=== PATIENT | male | born 1955 | race Caucasian/White ===

== ENCOUNTER 2019-11-14 08:56 | Observation (INO) ==
[~2019-11-14 08:56] MED LIST: Buffered Lidocaine 1% SYRIN 1 ml INTRADERM ONE; Famotidine IV 10 MG/ML 2 ml VIAL (20 mg) IV ONE; Lactated Ringers 1000 ml BAG 1,000 ML IV SCH
[2019-11-14] MEDS ORDERED: Famotidine IV 10 MG/ML 2 ml VIAL (20 mg) ONE (09:22)
[2019-11-14] MEDS ORDERED: ceFAZolin 2 GM PREMIX 2 GM/50 ML BAG ONE (09:22)
[2019-11-14] MEDS ORDERED: Midazolam 2 mg/2 ml VIAL 1 mg/ml 2 ml VIAL (2 mg) ONE (10:45)
[2019-11-14] MEDS ORDERED: fentaNYL 100 mcg/2 ml 50 MCG/ML VIAL ONE ×4 (10:45→15:10)
[2019-11-14] MEDS ORDERED: Succinylcholine 200 mg VIAL 20 mg/ml 10 ml VIAL (200 mg) ONE (11:16)
[2019-11-14] MEDS ORDERED: Acetaminophen IV 1 GM/100ML 100 ML ONE (11:16)
[2019-11-14] MEDS ORDERED: Propofol 10 MG/ML 20 ML BTL ONE (11:16)
[2019-11-14] MEDS ORDERED: Ondansetron 4 mg VIAL 2 MG/ML 2 ml VIAL ONE (11:16)
[2019-11-14] MEDS ORDERED: Lidocaine 2% PF 5 ML VIAL ONE (11:16)
[2019-11-14] MEDS ORDERED: Dexamethasone IV 4 MG/ML VIAL 1 ml VIAL ONE (11:16)
[2019-11-14] MEDS ORDERED: ROPIVACAINE 5 MG/ML 30 ML BTL (0.5%) ONE (11:19)
[2019-11-14] MEDS ORDERED: HYDROmorphone 1 MG/1 ML SYRINGE ONE (12:24)
[2019-11-14] MEDS ORDERED: Lactulose 30 ml UDC PO PRN (14:50)
[2019-11-14] MEDS ORDERED: diPHENhydraMINE IV 50 MG/ML 1 ml VIAL (BENADRYL) IV PRN (14:50)
[2019-11-14] MEDS ORDERED: Morphine 2 MG/ML SYRINGE IV PRN (14:50)
[2019-11-14] MEDS ORDERED: Ondansetron ODT 4 mg TAB 4 MG TAB PO PRN (14:50)
[2019-11-14] MEDS ORDERED: Magnesium Hydroxide LIQ 30 ML UDC PO PRN (14:50)
[2019-11-14] MEDS ORDERED: diPHENhydraMINE 25 mg TAB PO PRN (14:50)
[2019-11-14] MEDS ORDERED: Naloxone 0.4 mg VIAL 0.4 mg/ml 1 ml VIAL IV PRN (14:55)
[2019-11-14] MEDS ORDERED: Levalbuterol 0.63MG/3ML NEB UNIT OF USE INH PRN (14:55)
[2019-11-14] MEDS ORDERED: fentaNYL 100 mcg/2 ml 50 MCG/ML VIAL IV PRN (14:55)
[2019-11-14] MEDS ORDERED: DiMENhydriNATE IV 50 mg/ml 1 ml VIAL IV PUSH PRN (14:55)
[2019-11-14] MEDS ORDERED: Ondansetron 4 mg VIAL 2 MG/ML 2 ml VIAL IV PRN (14:55)
[2019-11-14] MEDS: Lactated Ringers 1000 ml BAG 1,000 ML IV SCH (16:23)
[2019-11-14] MEDS: Ondansetron 4 mg VIAL 2 MG/ML 2 ml VIAL IV PRN (17:23)
[2019-11-14] MEDS ORDERED: Thiamine 100 MG/ML 2 ml VIAL (200 mg) IM ONE (19:28)
[2019-11-14] MEDS: ceFAZolin 1 GM ADVAN 1 GM in NS 0.9% 50 ML 50 ML IVPB SCH (20:08)
[2019-11-14] MEDS: Magnesium Hydroxide LIQ 30 ML UDC PO SCH (22:25)
[2019-11-15] MEDS: Lactated Ringers 1000 ml BAG 1,000 ML IV SCH (02:55)
[2019-11-15] MEDS: ceFAZolin 1 GM ADVAN 1 GM in NS 0.9% 50 ML 50 ML IVPB SCH ×2 (04:37→11:27)
[2019-11-15 06:25] LABS: Hematocrit 35 % (42-52); Hemoglobin 12.7 g/dL (14.0-18.0); Mean Platelet Volume 8.7 fL (7.4-10.4); Platelet Count 197 10^3/uL (150-450)
[2019-11-15 06:38] LABS: BUN/Creatinine Ratio 12.9 (8-20); EGFR African American 136.9 (>60); EGFR Non-African American 113.2 (>60); Potassium 3.8 mmol/L (3.5-5.0)
[2019-11-15] MEDS: Magnesium Hydroxide LIQ 30 ML UDC PO SCH (08:49)
[2019-11-15] MEDS ORDERED: Aspirin EC 81 mg TAB.EC (enteric coated) PO SCH (09:00)
[2019-11-15] MEDS ORDERED: Vitamin THERAPEUTIC TAB PO SCH (09:00)
[2019-11-15] MEDS ORDERED: Multivitamins/Minerals TAB PO SCH (09:00)
[2019-11-15] MEDS: Ondansetron 4 mg VIAL 2 MG/ML 2 ml VIAL IV PRN (09:36)
[2019-11-15 11:49] VITALS: BP 123/74
[2019-11-15] MEDS ORDERED: Enoxaparin 30 MG/0.3 ML SYR SUBCUT SCH (12:00)
[2019-11-16] MEDS ORDERED: Enoxaparin 40 MG/0.4 ML SYR SUBCUT SCH (12:00)
[2019-11-18] MEDS ORDERED: Scopolamine PATCH Remove NOTE PATCH OFF SCH (12:00)
== END 2019-11-15 12:50 | disposition home or self-care (01) ==
LOC: OR 08:56 → SSU 08:56
PROVIDERS: ADMIT Orthopaedic Surgery; ATTEND Orthopaedic Surgery